=== PATIENT | female | born 1955 | race Caucasian/White ===

== ENCOUNTER 2023-02-13 05:27 | Inpatient (IN) | payer MEDICARE, BC ==
[2023-02-13 06:13] LABS: Bilirubin Neg (Negative); Blood, Urine Negative (Negative); Glucose, Urine (Dipstick) 250 mg/dL (Negative); Ketone, Urine 15 mg/dL (Negative); Leukocyte Negative (Negative); Nitrite Negative (Negative); Protein, Urine (Dipstick) 15 mg/dl (Neg-Trace); Urobilinogen Normal mg/dL (Less than 2)
[2023-02-13 06:20] LABS: Clarity Clear (Clear)
[2023-02-13 06:22] LABS: Bacteria/HPF None Seen HPF (None Seen); CAUTI Indications for Culture Alt mental st,lethar; RBC/HPF 0-3 HPF (0-3)
[2023-02-13 06:22] LABS: Hematocrit 36.7 % (34.9-44.5); Hemoglobin 12.1 g/dL (12.0-15.5); Mean Platelet Volume 9.4 fl (7.4-10.4); Platelet Count 226 10x3/uL (150-450); RBC Distribution Width 14.5 % (11.5-14.5); Red Blood Cell (RBC) Count 4.17 10x6/uL (3.90-5.03); White Blood Cell (WBC) Count 21.9 10x3/uL (3.5-10.5)
[2023-02-13 06:23] LABS: Squamous Epithelial 0-3 HPF (0-3); WBC/HPF 0-3 HPF (0-3)
[2023-02-13 06:24] LABS: Urine Culture Reflex No No
[2023-02-13 06:27] LABS: MDiff Complete? YES
[2023-02-13 06:28] LABS: Amphetamine Not Detected (NotDetected); Barbiturates Screen Not Detected (NotDetected); Benzodiazepine Screen Not Detected (NotDetected); Cocaine Metabolite Screen Not Detected (NotDetected); Methadone Not Detected (NotDetected); Methamphetamine Not Detected (NotDetected); Opiate Screen Not Detected (NotDetected); Oxycodone Screen Not Detected (NotDetected); Phencyclidine (PCP) Not Detected (NotDetected); THC/Cannabinoid Screen Not Detected (NotDetected); Tricyclic Screen Not Detected (NotDetected)
[2023-02-13] MEDS ORDERED: Diazepam 10 MG/2 ML SYRINGE ONE (06:39)
[2023-02-13 06:41] LABS: Acetaminophen Less than 10 mcg/mL (10.0-30.0); Alcohol Less than 10.0 mg/dL (Less than 10); Lipase 15 U/L (8-78); Salicylate Less than 8.0 mg/dL (15.0-30.0); Troponin I 0.106 ng/mL (< 0.028)
[2023-02-13 06:43] LABS: ALT (SGPT) 19 U/L (8-55); AST (SGOT) 14 U/L (5-34); Albumin 4.2 g/dL (3.4-4.8); Alkaline Phosphatase 88 U/L (40-110); Anion Gap 18 mmol/L (10-20); BUN (Urea Nitrogen) 12 mg/dL (9.8-20.1); Bilirubin, Total 1.1 mg/dL (0.2-1.2); Calc. Creatinine Clearance 0 mL/min (70-130); Calcium 9.1 mg/dL (7.8-10.44); Carbon Dioxide 20 mmol/L (23-31); Chloride 103 mmol/L (98-107); Estimated GFR 72; Glucose 210 mg/dL (80-115); Potassium 3.1 mmol/L (3.5-5.1); Protein, Total 8.2 g/dL (5.8-8.1); Sodium 138 mmol/L (136-145)
[2023-02-13 06:44] LABS: Platelet Adequacy Comment Appears Adequate; RBC Morph Comment Within Normal Limits
[2023-02-13 06:46] LABS: Band 12 % (5-11); Lymphocytes 5 % (21-51); Metamyelocyte 2 % (0-0); Monocytes 6 % (0-10); Neutrophil 75 % (42-75)
[2023-02-13] MEDS ORDERED: CEFAZOLIN 2 GM VIAL ONE (06:48)
[2023-02-13 07:03] LABS: SARS-CoV-2 NAA Rapid Test Not Detected (NotDetected)
[2023-02-13] MEDS ORDERED: Cefepime 2 GM VIAL ONE (07:28)
[2023-02-13] MEDS ORDERED: Haloperidol Lactate 5 MG/ML VIAL ONE (08:33)
[2023-02-13] MEDS ORDERED: Vancomycin 1 GM VIAL ONE (08:43)
[2023-02-13 09:22] LABS: Lactic Acid 3.9 mmol/L (0.5-2.2)
[2023-02-13] MEDS ORDERED: Calcium Carbonate 500 MG ChewTAB PO PRN (10:13)
[2023-02-13] MEDS ORDERED: Guaifenesin DM 100-10/5 ML UDCUP PO PRN (10:13)
[2023-02-13] MEDS ORDERED: Acetaminophen 325 MG TAB PO PRN (10:13)
[2023-02-13] MEDS ORDERED: cefTRIAXone\\ROCEPHIN 2 GM in Sodium Chloride 0.9% 100 ML IVPB SCH (10:15)
[2023-02-13 10:58] LABS: Actual Bicarbonate (HCO3v) 23.5 mEq/L (22-28); Analyzer IN Cardio CS ER; Base Excess -1.8 mEq/L (-2 - +2); Calcium, Ionized (venous) 1.03 mmol/L (1.16-1.32); Chloride (VBG) 102 mmol/L (98-106); Hematocrit-VBG 40 % (36.0-47.0); Hemoglobin (Hb) 13.7 g/dL (11.7-16.1); Potassium (VBG) 3.14 mmol/L (3.70-5.30); Puncture Site Other Site; RapidComm Collect By lab tech; Sodium 139 mmol/L (133-146); pH (venous) 7.366 (7.32-7.43)
[2023-02-13] MEDS ORDERED: Iopamidol 300 61% 100 ML VIAL FS ONE (12:22)
[2023-02-13 14:39] LABS: CSF, Glucose 70 mg/dl (40-70)
[2023-02-13 14:53] LABS: CSF, Protein 338 mg/dL (15-40)
[2023-02-13 15:16] LABS: CSF Source CSF; Clarity Cloudy/Turbid (Clear); Tube # 2
[2023-02-13 15:20] LABS: CSF RBC Count - Manual 102 /cu.mm (None Seen)
[2023-02-13 15:55] LABS: Cell Count Non Hematic 17 %; Lymphocytes 5 %; Segmented Neutrophils 78 %
[2023-02-13] MEDS ORDERED: Acetaminophen 650 MG Suppository PR PRN (16:14)
[2023-02-13] MEDS: Ampicillin 2 GM in Sodium Chloride 0.9% 100 ML IVPB SCH ×2 (17:46→20:39)
[2023-02-13] MEDS: Ondansetron PF 4 MG/2 ML Vial IVP PRN (17:46)
[2023-02-13] MEDS ORDERED: Vancomycin 1 GM in Sodium Chloride 0.9% 250 ML 250 ML IVPB SCH (18:00)
[2023-02-13] MEDS: HYDROcodone/Acetaminophen 5/325 mg Tablet PO PRN (19:31)
[2023-02-13] MEDS: Sodium Chloride 0.9% 1,000 ML IV SCH ×2 (20:52→23:01)
[2023-02-13] MEDS ORDERED: Cefepime 2 GM in Sodium Chloride 0.9% 100 ML IVPB SCH (21:00)
[2023-02-13] MEDS ORDERED: Lorazepam 2 MG/ML VIAL SLOW IVP SCH (21:00)
[2023-02-13] MEDS: cefTRIAXone\\ROCEPHIN 2 GM in Sodium Chloride 0.9% 100 ML IVPB SCH (21:29)
[2023-02-13 22:58] VITALS: BMI 26.2
[2023-02-14] MEDS: Ampicillin 2 GM in Sodium Chloride 0.9% 100 ML IVPB SCH ×6 (00:57→21:08)
[2023-02-14] MEDS: HYDROcodone/Acetaminophen 5/325 mg Tablet PO PRN (04:40)
[2023-02-14] MEDS ORDERED: Loratadine 10 MG TAB PO SCH (05:30)
[2023-02-14 05:52] LABS: Hematocrit 30.4 % (34.9-44.5); Hemoglobin 9.8 g/dL (12.0-15.5); Mean Corpuscular HGB CONC 32.2 g/dL (32.0-36.0); Mean Corpuscular Hemoglobin 28.2 pg (27.0-33.0); Mean Corpuscular Volume 87.6 fl (81.6-98.3); Mean Platelet Volume 9.4 fl (7.4-10.4); Platelet Count 178 10x3/uL (150-450); RBC Distribution Width 14.6 % (11.5-14.5); Red Blood Cell (RBC) Count 3.47 10x6/uL (3.90-5.03); White Blood Cell (WBC) Count 14.7 10x3/uL (3.5-10.5)
[2023-02-14] MEDS: Vancomycin 1 GM in Sodium Chloride 0.9% 250 ML 250 ML IVPB SCH (05:55)
[2023-02-14 06:00] LABS: Anion Gap 11 mmol/L (10-20); BUN (Urea Nitrogen) 13 mg/dL (9.8-20.1); Calc. Creatinine Clearance 79 mL/min (70-130); Calcium 8.3 mg/dL (7.8-10.44); Carbon Dioxide 21 mmol/L (23-31); Chloride 110 mmol/L (98-107); Estimated GFR 95; Glucose 105 mg/dL (80-115); Sodium 139 mmol/L (136-145)
[2023-02-14 06:03] LABS: MDiff Complete? YES
[2023-02-14 06:29] LABS: Platelet Adequacy Comment Appears Adequate; RBC Morph Comment Within Normal Limits
[2023-02-14 06:30] LABS: Band 5 % (5-11); Eosinophils 1 % (0-10); Lymphocytes 15 % (21-51); Monocytes 8 % (0-10); Neutrophil 71 % (42-75)
[2023-02-14] MEDS: cefTRIAXone\\ROCEPHIN 2 GM in Sodium Chloride 0.9% 100 ML IVPB SCH ×2 (08:30→20:10)
[2023-02-14] MEDS ORDERED: Potassium Chloride 20 MEQ TAB PO SCH (08:45)
[2023-02-14] MEDS ORDERED: PROPOFOL 20 ML ONE (10:27)
[2023-02-14] MEDS ORDERED: fentaNYL 50 mcg/mL 1 mL Vial ONE (10:27)
[2023-02-14] MEDS ORDERED: Lidocaine 1% PF 5 ML VIAL ONE ×2 (10:28→11:09)
[2023-02-14] MEDS ORDERED: Ondansetron PF 4 MG/2 ML Vial ONE ×2 (10:28→11:09)
[2023-02-14] MEDS ORDERED: Rocuronium Bromide 10 MG/ML (10ML VIAL) ONE ×2 (10:28→11:10)
[2023-02-14] MEDS ORDERED: Dexamethasone 4 mg/ml Vial ONE (10:28)
[2023-02-14] MEDS ORDERED: EPINEPHrine 1 MG/ML VIAL ONE (10:29)
[2023-02-14] MEDS ORDERED: Lidocaine 1% w/Epinephrine 1:100K 20 ML VIAL ONE (10:29)
[2023-02-14] MEDS ORDERED: Oxymetazoline HCl 0.05% ( 15 ML ) ONE (10:30)
[2023-02-14] MEDS ORDERED: SUGAMMADEX SODIUM 200 MG/2 ML VIAL ONE (10:36)
[2023-02-14] MEDS ORDERED: oFLOXacin 0.3% Opth 5 ML BOT ONE (10:38)
[2023-02-14] MEDS ORDERED: Lidocaine 4% PF 5 ML AMP ONE ×2 (10:40→11:08)
[2023-02-14] MEDS: Fluticasone Propionate Nasal Spray 16 gm Bottle NASAL SCH (10:47)
[2023-02-14] MEDS ORDERED: Glycopyrrolate 0.2 MG/ML 5 ML SYRINGE ONE (11:08)
[2023-02-14] MEDS ORDERED: PHENYLEPHRINE-NS 100 MCG/ML 10 ML SYRINGE ONE (11:08)
[2023-02-14] MEDS ORDERED: Bupivacaine HCl 0.5%/Epinephrine 1:200,000/PF 30 ml Vial ONE (11:09)
[2023-02-14] MEDS ORDERED: Dexamethasone 20 MG/5 ML VIAL ONE (11:09)
[2023-02-14] MEDS ORDERED: Atropine Sulfate 0.4 mg/1 ml Vial ONE (11:09)
[2023-02-14] MEDS ORDERED: Sodium Chloride 0.9% 10 ML ONE (11:10)
[2023-02-14] MEDS ORDERED: Sterile Water 10 ML ONE (11:10)
[2023-02-14] MEDS ORDERED: EPINEPHrine 1 MG/10 ML Abboject SYRINGE ONE (11:10)
[2023-02-14] MEDS: Ciprofloxacin HCL/Dexameth Otic Drops 7.5 ml Bottle L EAR SCH (21:09)
[2023-02-14] MEDS: Senokot S 8.6-50 MG TAB PO PRN (21:15)
[2023-02-15] MEDS: Vancomycin 1 GM in Sodium Chloride 0.9% 250 ML 250 ML IVPB SCH (00:15)
[2023-02-15] MEDS: HYDROcodone/Acetaminophen 5/325 mg Tablet PO PRN ×2 (01:22→21:31)
[2023-02-15] MEDS: Ampicillin 2 GM in Sodium Chloride 0.9% 100 ML IVPB SCH ×2 (01:23→05:05)
[2023-02-15 05:33] LABS: Anion Gap 12 mmol/L (10-20); BUN (Urea Nitrogen) 19 mg/dL (9.8-20.1); Calc. Creatinine Clearance 75 mL/min (70-130); Calcium 8.3 mg/dL (7.8-10.44); Carbon Dioxide 21 mmol/L (23-31); Chloride 110 mmol/L (98-107); Estimated GFR 92; Glucose 129 mg/dL (80-115); Potassium 3.1 mmol/L (3.5-5.1); Sodium 140 mmol/L (136-145)
[2023-02-15] MEDS: Fluticasone Propionate Nasal Spray 16 gm Bottle NASAL SCH (09:23)
[2023-02-15] MEDS: Ciprofloxacin HCL/Dexameth Otic Drops 7.5 ml Bottle L EAR SCH ×2 (09:23→21:30)
[2023-02-15] MEDS: cefTRIAXone\\ROCEPHIN 2 GM in Sodium Chloride 0.9% 100 ML IVPB SCH ×2 (09:23→21:29)
[2023-02-15 12:06] LABS: Hemoglobin A1c 6.2 % (4.0-6.0)
[2023-02-15] MEDS ORDERED: Potassium Bicarbonate/Cit Ac 20 MEQ TAB PO SCH (13:00)
[2023-02-15] MEDS: Senokot S 8.6-50 MG TAB PO PRN (16:04)
[2023-02-15 17:39] LABS: Vancomycin, Trough 6.8 ug/mL
[2023-02-15] MEDS: Oxymetazoline HCl 0.05% ( 15 ML ) NASAL PRN (21:30)
[2023-02-16 05:03] LABS: Anion Gap 11 mmol/L (10-20); BUN (Urea Nitrogen) 13 mg/dL (9.8-20.1); Calc. Creatinine Clearance 72 mL/min (70-130); Calcium 8.2 mg/dL (7.8-10.44); Carbon Dioxide 26 mmol/L (23-31); Chloride 107 mmol/L (98-107); Estimated GFR 87; Glucose 103 mg/dL (80-115); Potassium 3.2 mmol/L (3.5-5.1); Sodium 141 mmol/L (136-145)
[2023-02-16 08:46] LABS: #Monocytes 0.5 10x3/uL (0.0-1.1); #Neutrophils 6.4 10x3/uL (1.5-8.4); %Basophils 0.4 % (0.0-2.0); %Eosinophils 0.2 % (0.0-6.0); %Lymphocytes 20.2 % (18.0-47.0); %Monocytes 5.3 % (0.0-10.0); %Neutrophils 71.3 % (40.0-75.0); Hematocrit 33.9 % (34.9-44.5); Hemoglobin 10.9 g/dL (12.0-15.5); Mean Corpuscular HGB CONC 32.2 g/dL (32.0-36.0); Mean Corpuscular Hemoglobin 28.3 pg (27.0-33.0); Mean Corpuscular Volume 88.1 fl (81.6-98.3); Mean Platelet Volume 9.8 fl (7.4-10.4); Platelet Count 236 10x3/uL (150-450); RBC Distribution Width 14.9 % (11.5-14.5); Red Blood Cell (RBC) Count 3.85 10x6/uL (3.90-5.03); White Blood Cell (WBC) Count 8.9 10x3/uL (3.5-10.5)
[2023-02-16] MEDS ORDERED: Potassium Bicarbonate/Cit Ac 20 MEQ TAB PO SCH (09:00)
[2023-02-16] MEDS: cefTRIAXone\\ROCEPHIN 2 GM in Sodium Chloride 0.9% 100 ML IVPB SCH ×2 (09:32→21:26)
[2023-02-16] MEDS: Fluticasone Propionate Nasal Spray 16 gm Bottle NASAL SCH (09:34)
[2023-02-16] MEDS: Ciprofloxacin HCL/Dexameth Otic Drops 7.5 ml Bottle L EAR SCH ×2 (09:34→21:37)
[2023-02-16] MEDS ORDERED: Loratadine 10 MG TAB PO PRN (11:52)
[2023-02-16] MEDS ORDERED: Fioricet 325/50/40 mg Tablet PO PRN (11:56)
[2023-02-16] MEDS ORDERED: Benzocaine/Menthol 1 LOZ LOZ PO PRN (11:57)
[2023-02-16] MEDS: Ondansetron PF 4 MG/2 ML Vial IVP PRN (21:25)
[2023-02-16] MEDS: Senokot S 8.6-50 MG TAB PO PRN (21:31)
[2023-02-16] MEDS: Oxymetazoline HCl 0.05% ( 15 ML ) NASAL PRN (21:35)
[2023-02-16] MEDS: HYDROcodone/Acetaminophen 5/325 mg Tablet PO PRN (21:51)
[2023-02-17] MEDS: HYDROcodone/Acetaminophen 5/325 mg Tablet PO PRN ×2 (05:24→14:00)
[2023-02-17 05:59] LABS: #Basophils 0.1 10x3/uL (0.0-0.2); #Eosinphils 0.1 10x3/uL (0.0-0.5); #Monocytes 0.4 10x3/uL (0.0-1.1); #Neutrophils 5.3 10x3/uL (1.5-8.4); %Basophils 0.8 % (0.0-2.0); %Eosinophils 0.9 % (0.0-6.0); %Lymphocytes 19.2 % (18.0-47.0); %Monocytes 5.2 % (0.0-10.0); %Neutrophils 71.5 % (40.0-75.0); Hematocrit 35.7 % (34.9-44.5); Hemoglobin 11.3 g/dL (12.0-15.5); Mean Corpuscular HGB CONC 31.7 g/dL (32.0-36.0); Mean Corpuscular Hemoglobin 27.8 pg (27.0-33.0); Mean Corpuscular Volume 87.9 fl (81.6-98.3); Mean Platelet Volume 9.5 fl (7.4-10.4); Platelet Count 255 10x3/uL (150-450); RBC Distribution Width 14.6 % (11.5-14.5); Red Blood Cell (RBC) Count 4.06 10x6/uL (3.90-5.03); White Blood Cell (WBC) Count 7.5 10x3/uL (3.5-10.5)
[2023-02-17 06:12] LABS: Anion Gap 14 mmol/L (10-20); BUN (Urea Nitrogen) 11 mg/dL (9.8-20.1); Calc. Creatinine Clearance 67 mL/min (70-130); Carbon Dioxide 25 mmol/L (23-31); Chloride 103 mmol/L (98-107); Estimated GFR 80; Glucose 107 mg/dL (80-115); Sodium 139 mmol/L (136-145)
[2023-02-17] MEDS: cefTRIAXone\\ROCEPHIN 2 GM in Sodium Chloride 0.9% 100 ML IVPB SCH (08:46)
[2023-02-17] MEDS ORDERED: Potassium Bicarbonate/Cit Ac 20 MEQ TAB PO SCH (09:30)
[2023-02-17] MEDS: Ciprofloxacin HCL/Dexameth Otic Drops 7.5 ml Bottle L EAR SCH (09:51)
[2023-02-17] MEDS: Fluticasone Propionate Nasal Spray 16 gm Bottle NASAL SCH (09:51)
[2023-02-17 18:37] VITALS: BP 165/88; TEMP 98.5
== END 2023-02-17 18:50 | disposition home or self-care (01) | DRG 871 ==
LOC: CSHERS 05:27 → CSHTELE 10:10
PROVIDERS: ADMIT Hospitalist; ATTEND Internal Medicine
PROC: 009U3ZX Drainage of Spinal Canal, Percutaneous Approach, Diagnostic (ICD-10-PCS; principal; 2023-02-13)
PROC: B01B1ZZ Fluoroscopy of Spinal Cord using Low Osmolar Contrast (ICD-10-PCS; 2023-02-13)
PROC: 4A043R1 Measurement of Venous Saturation, Peripheral, Percutaneous Approach (ICD-10-PCS; 2023-02-13)
PROC: 3E04329 Introduction of Other Anti-infective into Central Vein, Percutaneous Approach (ICD-10-PCS; 2023-02-13)
PROC: 099680Z Drainage of Left Middle Ear with Drainage Device, Via Natural or Artificial Opening Endoscopic (ICD-10-PCS; 2023-02-14)
PROC: 02HV33Z Insertion of Infusion Device into Superior Vena Cava, Percutaneous Approach (ICD-10-PCS; 2023-02-17)
PROC: B5181ZA Fluoroscopy of Superior Vena Cava using Low Osmolar Contrast, Guidance (ICD-10-PCS; 2023-02-17)
DX: A40.3 Sepsis due to Streptococcus pneumoniae (principal); G00.9 Bacterial meningitis, unspecified; R65.21 Severe sepsis with septic shock; G93.41 Metabolic encephalopathy; H70.009 Acute mastoiditis without complications, unspecified ear; J01.40 Acute pansinusitis, unspecified; I10 Essential (primary) hypertension; E11.9 Type 2 diabetes mellitus without complications; Z82.49 Family history of ischemic heart disease and other diseases of the circulatory system; Z11.52 Encounter for screening for COVID-19; E87.6 Hypokalemia; H66.92 Otitis media, unspecified, left ear; Z79.899 Other long term (current) drug therapy; R33.9 Retention of urine, unspecified
CPT/HCPCS: 36415; 36416; 36569; 62270; 70450; 71045; 74177; 80048; 80053; 80202; 80306; 80307; 81001; 82805; 82945; 83036; 83605; 83690; 84157; 84484; 85025; 85060; 86612; 86635; 86698; 86788; 86789; 87040; 87070; 87077; 87086; 87149; 87186; 87205; 87633; 87798; 87899; 89051; 93005; 96361; 96365; 96366; 96367; 96375; C1751; J0171; J0290; J0461; J0692; J0696; J1100; J1630; J1650; J2060; J2405; J2704; J3010; J3360; J3370; J3490; J7050; L8699; Q9967; U0002